=== PATIENT | female | born 1940 | race Caucasian/White ===

== ENCOUNTER 2018-04-06 01:37 | Outpatient (CLI) | payer MEDICARE ==
[~2018-04-06 01:37] MED LIST: AMLO5TAB PO; EVOL140P SQ; LANTUS SQ; LOP25T PO; METF-436 PO; METR500T4 PO; OMEP20CA10 PO; ONDA4TAB6 PO
== END 2018-04-06 23:59 | disposition home or self-care (01) ==
LOC: DIABETIC 01:37
PROVIDERS: ATTEND Family Medicine
DX: E11.65 Type 2 diabetes mellitus with hyperglycemia (principal); I10 Essential (primary) hypertension; Z79.899 Other long term (current) drug therapy; Z79.4 Long term (current) use of insulin; Z87.891 Personal history of nicotine dependence
CPT/HCPCS: G0108

== ENCOUNTER 2018-07-26 10:33 | Outpatient (CLI) | payer MEDICARE, OTHER | END 2018-07-26 23:59 | disposition home or self-care (01) | LOC: RAD 10:33 | PROVIDERS: ATTEND Family Medicine | DX: M48.02 Spinal stenosis, cervical region (principal); M48.061 Spinal stenosis, lumbar region without neurogenic claudication; M50.323 Other cervical disc degeneration at C6-C7 level; M51.36 Other intervertebral disc degeneration, lumbar region; M25.521 Pain in right elbow; M40.292 Other kyphosis, cervical region; I10 Essential (primary) hypertension; E11.9 Type 2 diabetes mellitus without complications; Z79.4 Long term (current) use of insulin; Z87.891 Personal history of nicotine dependence; Z79.899 Other long term (current) drug therapy | CPT/HCPCS: 72141; 72146; 72148 ==

== ENCOUNTER 2018-07-27 10:08 | Outpatient (CLI) | payer MEDICARE, OTHER | END 2018-07-27 23:59 | disposition home or self-care (01) | LOC: RAD 10:08 | PROVIDERS: ATTEND Family Medicine | DX: M43.12 Spondylolisthesis, cervical region (principal); M47.812 Spondylosis without myelopathy or radiculopathy, cervical region; M43.16 Spondylolisthesis, lumbar region; M41.86 Other forms of scoliosis, lumbar region; I70.0 Atherosclerosis of aorta; M47.816 Spondylosis without myelopathy or radiculopathy, lumbar region; Z87.891 Personal history of nicotine dependence; Z90.710 Acquired absence of both cervix and uterus; Z98.890 Other specified postprocedural states; Z88.5 Allergy status to narcotic agent | CPT/HCPCS: 72050; 72110 ==

== ENCOUNTER 2023-10-21 14:34 | Observation (INO) | payer MEDICARE, OTHER ==
[~2023-10-21] VITALS: Ht 170.2 cm; Wt 63.6 kg
[~2023-10-21 14:34] MED LIST changes: +ALPR0.5T8 PO; +AMIO200T67 PO; +APIX2.5T PO; +ATOR20TA PO; +DIPH-735 PO; -EVOL140P SQ; +EVOL140P3 SQ; +EVOL140P3 SUBCUT; +HYDR-3973 PO; +LOP12.5T PO; +LOSA-416 PO; +METR-159 PO; -METR500T4 PO; -OMEP20CA10 PO; +OMEP20CA15 PO; +OMEP20CA16 PO; +SITA1TAB6 PO
[2023-10-21 14:45] VITALS: TEMP 98
[2023-10-21] MEDS: hydrALAZINE 20mg/ml inj. IV ONE (15:36)
[2023-10-21 15:41] LABS: BASOPHILS # (AUTO) 0.1 X10'3 (0-0.2); BASOPHILS % (AUTO) 1.1 % (0-1); EOSINOPHILS # (AUTO) 0.3 X10'3 (0-0.9); EOSINOPHILS % (AUTO) 3.1 % (0-6); HEMATOCRIT 33.8 % (35.0-45.0); HEMOGLOBIN 11.1 g/dl (12.0-16.0); LYMPHOCYTES # (AUTO) 3.9 X10'3 (1.1-4.8); LYMPHOCYTES % (AUTO) 37.9 % (21-51); MEAN CORPUSCULAR HEMOGLOBIN 28.4 PG (27.0-31.0); MEAN CORPUSCULAR HGB CONC 32.7 g/dL (33.0-36.5); MEAN CORPUSCULAR VOLUME 86.9 FL (78-98); MEAN PLATELET VOLUME 7.3 FL (7.4-10.4); MONOCYTES # (AUTO) 0.7 X10'3 (0-0.9); MONOCYTES % (AUTO) 6.4 % (2-12); NEUTROPHILS # (AUTO) 5.3 X10'3 (1.8-7.7); NEUTROPHILS % (AUTO) 51.5 % (42-75); PLATELET COUNT 340 X10'3 (140-440); RED CELL DISTRIBUTION WIDTH 13.6 % (11.5-14.5); WHITE BLOOD COUNT 10.3 X10'3 (4.5-11.0)
[2023-10-21] MEDS: metoclopramide 5 mg/ml inj IV ONE ×2 (15:42→15:46)
[2023-10-21] MEDS: LORazepam 2 mg/ml vial IV ONE ×2 (15:43→15:47)
[2023-10-21] MEDS: acetaminophen 325mg tablet PO ONE (15:51)
[2023-10-21 16:16] LABS: ALBUMIN 2.5 G/DL (3.4-5.0); ANION GAP 11 (8-16); BLOOD UREA NITROGEN 13 MG/DL (7-18); CREATININE 0.59 MG/DL (0.40-0.90); GLUCOSE 82 MG/DL (70-104); PRO BRAIN NATRIURETIC PEPTIDE 1961 PG/ML (0-450); SODIUM 143 MMOL/L (135-145); TOTAL CARBON DIOXIDE 19.4 MMOL/L (24-32); eCRCL 73 ML/MIN; eGFR > 90 ML/MIN
[2023-10-21 16:21] LABS: CALCIUM 5.9 MG/DL (8.5-10.1); CHLORIDE 113 MMOL/L (99-107)
[2023-10-21] MEDS ORDERED: ondansetron 4mg rapidly disintigrating tab PO PRN (17:50)
[2023-10-21] MEDS ORDERED: magnesium 4gm in 100ml NS 100 ML IV PRN (17:50)
[2023-10-21] MEDS ORDERED: magnesium 2GM in 50ml NS 50 ML IV PRN (17:50)
[2023-10-21] MEDS ORDERED: potassium Cl 20 mEq SR tablet PO PRN ×2 (17:50)
[2023-10-21] MEDS ORDERED: magnesium Cl slow-release 64mg tablet PO PRN (17:50)
[2023-10-21] MEDS ORDERED: ondansetron/PF 4mg/2ml inj IV PRN (17:50)
[2023-10-21] MEDS ORDERED: magnesium hydroxide 30ml (MOM) UD suspension PO PRN (17:50)
[2023-10-21] MEDS ORDERED: acetaminophen 325mg tablet PO PRN ×2 (17:50)
[2023-10-21] MEDS ORDERED: mag hydrox/Alum hydrox/simeth 30ml oral suspension PO PRN (17:50)
[2023-10-21] MEDS ORDERED: DEXTROSE 15 GM of carb/4 tabs (each vial/BOTTLE has 4 tablets) PO PRN ×2 (19:25)
[2023-10-21] MEDS ORDERED: glucagon, human recombinant 1mg kit SUBCUT PRN (19:25)
[2023-10-21] MEDS ORDERED: dextrose 50%-water 50ml dispensing syringe IV PRN (19:25)
[2023-10-21] MEDS ORDERED: insulin Lispro (HumaLOG) vial - multi-dose SQ SCH (19:25)
[2023-10-21] MEDS: MESSAGE TO PHARMACY PO ONE (19:30)
[2023-10-21 19:44] LABS: HEMOGLOBIN A1C 7.1 % (4.5-6.2)
[2023-10-21] MEDS: K and/or MAG REPLACEMENT MC SCH (20:00)
[2023-10-21] MEDS: docusate sod 100mg capsule PO SCH (20:00)
[2023-10-21] MEDS: enoxaparin 40mg/0.4ml syringe SQ SCH (20:40)
[2023-10-21] MEDS: CALCIUM GLUC 1gm/50ml NACL,iso 50 ML IV ONE (20:40)
[2023-10-21] MEDS ORDERED: ATOR20TA PO (20:41)
[2023-10-21] MEDS: potassium Cl 40MEQ/1/2NS 520ml 520 ML IV PRN (20:41)
[2023-10-21] MEDS ORDERED: DIPH25CA83 PO (20:41)
[2023-10-21] MEDS ORDERED: PREVCR VG (20:41)
[2023-10-21] MEDS ORDERED: AMI200T PO (20:41)
[2023-10-21] MEDS ORDERED: SITA1TBM4 PO (20:41)
[2023-10-21] MEDS ORDERED: LOSA-415 PO (20:41)
[2023-10-21] MEDS ORDERED: APIX2.5T PO (20:41)
[2023-10-21] MEDS: insulin glargine (Lantus) pen - multi-dose SQ SCH (23:11)
[2023-10-22] MEDS: hydrALAZINE 20mg/ml inj. IV PRN (05:39)
[2023-10-22] MEDS ORDERED: diphenhydrAMINE 25mg capsule PO SCH (07:25)
[2023-10-22] MEDS: amiodarone 100mg tablet PO SCH (08:00)
[2023-10-22] MEDS: atorvastatin 20mg tablet PO SCH (08:33)
[2023-10-22] MEDS: pantoprazole 40mg Tablet.DR PO SCH (08:34)
[2023-10-22] MEDS: losartan 25mg tablet PO SCH (08:34)
[2023-10-22] MEDS: metoprolol tartrate 25mg tablet PO SCH (08:34)
[2023-10-22 08:54] LABS: BASOPHILS # (AUTO) 0.1 X10'3 (0-0.2); EOSINOPHILS # (AUTO) 0.2 X10'3 (0-0.9); EOSINOPHILS % (AUTO) 2.7 % (0-6); HEMATOCRIT 33.9 % (35.0-45.0); HEMOGLOBIN 11.3 g/dl (12.0-16.0); LYMPHOCYTES # (AUTO) 2.3 X10'3 (1.1-4.8); MEAN CORPUSCULAR HEMOGLOBIN 28.5 PG (27.0-31.0); MEAN CORPUSCULAR HGB CONC 33.3 g/dL (33.0-36.5); MEAN CORPUSCULAR VOLUME 85.8 FL (78-98); MEAN PLATELET VOLUME 7.2 FL (7.4-10.4); MONOCYTES # (AUTO) 0.6 X10'3 (0-0.9); MONOCYTES % (AUTO) 8.6 % (2-12); NEUTROPHILS # (AUTO) 4.3 X10'3 (1.8-7.7); NEUTROPHILS % (AUTO) 57.7 % (42-75); PLATELET COUNT 326 X10'3 (140-440); RED BLOOD COUNT 3.95 X10'6 (4.20-5.60); RED CELL DISTRIBUTION WIDTH 13.6 % (11.5-14.5); WHITE BLOOD COUNT 7.5 X10'3 (4.5-11.0)
[2023-10-22] MEDS: losartan 50mg tablet PO ONE (10:17)
[2023-10-22 10:35] LABS: ALBUMIN 3.6 G/DL (3.4-5.0); ANION GAP 9 (8-16); BLOOD UREA NITROGEN 17 MG/DL (7-18); BUN/CREATININE RATIO 16.2 (10.0-20.0); CALCIUM 9.4 MG/DL (8.5-10.1); CHLORIDE 103 MMOL/L (99-107); CREATININE 1.05 MG/DL (0.40-0.90); GLUCOSE 114 MG/DL (70-104); MAGNESIUM 1.8 MG/DL (1.5-2.4); POTASSIUM 4.2 MMOL/L (3.5-5.1); SODIUM 138 MMOL/L (135-145); TOTAL CARBON DIOXIDE 26.3 MMOL/L (24-32); eCRCL 41 ML/MIN; eGFR 50 ML/MIN
[2023-10-22] MEDS ORDERED: LOSA-415 PO (13:56)
[2023-10-22 14:52] VITALS: BP 174/66; PULSE 72; RESP 16; O2SAT 96
[2023-10-23] MEDS ORDERED: losartan 25mg tablet PO SCH (08:00)
== END 2023-10-22 14:52 | disposition home or self-care (01) ==
LOC: ER 14:34 → ED HOLD 17:58
PROVIDERS: ADMIT Family Medicine; ATTEND Family Medicine
DX: I16.1 Hypertensive emergency (principal); E87.6 Hypokalemia; E83.51 Hypocalcemia; E11.9 Type 2 diabetes mellitus without complications; E78.5 Hyperlipidemia, unspecified; I25.10 Atherosclerotic heart disease of native coronary artery without angina pectoris; I73.9 Peripheral vascular disease, unspecified; K21.9 Gastro-esophageal reflux disease without esophagitis; R51.9 Headache, unspecified; I10 Essential (primary) hypertension; Z87.891 Personal history of nicotine dependence; Z90.710 Acquired absence of both cervix and uterus; Z95.1 Presence of aortocoronary bypass graft; Z79.899 Other long term (current) drug therapy
CPT/HCPCS: 36415; 70450; 71045; 76882; 80048; 82330; 82948; 83036; 83605; 83735; 83880; 84100; 84484; 85025; 87040; 93005; 96365; 96366; 96368; 96372; 96375; 96376; 99285; G0378; J0360; J0610; J1650; J1815; J2060; J2765; J3480